=== PATIENT | female | born 1990 | race African-American/Black ===

== ENCOUNTER 2018-08-25 16:22 | Emergency (ER) | payer OTHER ==
[~2018-08-25] VITALS: Ht 165.1 cm; Wt 86.6 kg
--- OUTSIDE RECORDS SUMMARY | 2018-08-25 16:24 | XMS REPORT ---
[facility] Address Unknown Phone Unavailable Care Team Providers Care Prorate Clerk Name Role Phone Unavailable Unavailable Payers Payer Name Policy Type Policy Number Effective Date Expiration Date Problems This patient has no known problems. Allergies, Adverse Reactions, Alerts This patient has no known allergies or adverse reactions. Medications This patient has no known medications.
--- NOTE | 2018-08-25 19:27 | Diagnostic Imaging Report ---
EXAM: First Trimester Obstetric Pelvic Ultrasound INDICATION: Vaginal bleeding. . ^[id number] ^[id number] COMPARISON: None TECHNIQUE: Grayscale transverse and sagittal transabdominal and transvaginal images were obtained of the pelvis. Transvaginal imaging was medically necessary to better evaluate the endometrium, adnexa, and fetus. CLINICAL HISTORY: 28 year old A0 Last menstrual period: 07/10/2018 Clinical gestational age: 6 weeks 4 days FINDINGS: Uterus: Orientation: Normal Size: 9.2 x 4.9 x 5.5 cm, normal Mass: None Cervix: Normal Endometrium: 1.1 cm. Mildly heterogeneous.. Gestational Sac: A 0.5 cm cystic structure lower uterine segment (color Doppler image, time stamp 06:39:58 PM) is only seen on one image. Right ovary Size: 4 x 2 x 2.6 cm Mass/Cyst: None Left ovary Not visualized Cul-de-sac: No free fluid IMPRESSION: of unknown location. A cystic structure only seen on one image in the lower uterine segment could questionably represent but is not definitive for a gestational sac. Recommend correlation with serial beta-hCG and follow-up ultrasound in 1 to 2 weeks. Left ovary not visualized. Signed by: DR. Derrick Grimm MD on 08/25/2018 7:24 PM
== END 2018-08-25 19:20 | disposition home or self-care (01) ==
LOC: FSED 16:22
DX: O20.9 Hemorrhage in early pregnancy, unspecified (principal); O20.0 Threatened abortion
CPT/HCPCS: 36415; 76817; 80048; 81003; 81025; 84702; 85025; 99283